=== PATIENT | male | born 1975 | race Caucasian/White ===

== ENCOUNTER 2020-10-18 23:05 | Emergency (ER) | payer BC, MEDICAID ==
[2020-10-19] MEDS ORDERED: Ketorolac 30 MG/ML SDV IM STA (00:18)
[2020-10-19] MEDS ORDERED: Diazepam 5 MG Tab PO ONE (00:19)
--- NOTE | 2020-10-19 00:23 | EDM.PDOC ---
ED HPI GENERAL MEDICAL PROBLEM - General Chief Complaint: Lower Extremity Injury/Pain Stated Complaint: PAIN ON RIGHT HIP Time Seen by Provider: 10/18/20 23:59 - History of Present Illness INITIAL COMMENTS - FREE TEXT/NARRATIVE: 45-year-old male with no other active medical problems who is presenting with right hip pain that is a burning stabbing pain focused in the right hip and radiating down the right anterior thigh as well as into the right calf associated with calf spasms. No fall no injury of any kind no midline back pain or back pain. He notes that over the last month he has had on and off trouble with right-sided sciatica pain more in the buttock that radiates down the back. He states that this is improved with time and with movement. However this pain over the last few days has become more severe it is improved with direct pressure of his thumb on the anterior hip it is also improved in the position. No fevers no chills no history of IV drug use. Pain is currently 7 out of 10 he has not tried regular NSAIDs he did take 3 sleeping pills tonight to try and get some sleep he did fall asleep but he woke up in worse pain. He is typically in worst pain in the morning. right hip Pain Score (Numeric/FACES): 9 - Related Data Allergies Allergy/AdvReac Type Severity Reaction Status Date / Time No Known Allergies Allergy Verified 10/18/20 23:42 Home Meds: Home Meds Ibuprofen 800 mg PO TIDMEALS 5 Days #15 tablet 10/19/20 [Rx] diazePAM [Valium] 5 mg PO TID PRN 3 Days #9 tablet 10/19/20 [Rx] Past Medical History HEENT History: Reports: None Cardiovascular History: Reports: None Respiratory History: Reports: None Gastrointestinal History: Reports: None Genitourinary History: Reports: None Musculoskeletal History: Reports: None Neurological History: Reports: None Psychiatric History: Reports: Anxiety Endocrine/Metabolic History: Reports: None Insulin Pump Model and Casino Cage Supervisor: None Hematologic History: Reports: None Immunologic History: Reports: None Oncologic (Cancer) History: Reports: None Dermatologic History: Reports: None - Infectious Disease History Infectious Disease History: Reports: None - Past Surgical History Head Surgeries/Procedures: Reports: None Social & Family History - Family History Family Medical History: No Pertinent Family History - Caffeine Use Caffeine Use: Reports: Coffee - Recreational Drug Use Recreational Drug Use: No Review of Systems - Review of Systems Review Of Systems: See Below Constitutional: Reports: No Symptoms Respiratory: Reports: No Symptoms Cardiovascular: Reports: No Symptoms GI/Abdominal: Reports: No Symptoms Musculoskeletal: Reports: Other (Per HPI) Neurological: Reports: No Symptoms ED EXAM, GENERAL - Physical Exam Exam: See Below Free Text/Narrative:: General Appearance: No acute distress, appears comfortable Skin: No rash HEENT: Normocephalic/atraumatic, sclera anicteric, mucous membranes moist Neck: Normal range of motion Back: No midline tenderness step-off or deformity Musculoskeletal: Right lower extremity neurovascularly intact his pain is improved with direct pressure in the crease of the right hip anteriorly intact strength in the right hip no significant pain with hip motion with the exception of flexion Neurologic: Awake, alert, no obvious deficits, moving all extremities Psychiatric: Appropriate, cooperative Course - Vital Signs Last Recorded V/S: Last Vital Signs Temp 97.3 F 10/18/20 23:42 Pulse 77 10/18/20 23:42 Resp 18 10/18/20 23:42 BP 122/56 L 10/18/20 23:42 Pulse Ox 98 10/18/20 23:42 - Orders/Labs/Meds Meds: Medications Discontinued Medications Generic Name Dose Route Start Last Admin Trade Name Freq PRN Reason Stop Dose Admin Diazepam 5 mg 10/19/20 00:19 10/19/20 00:27 Valium. PO 10/19/20 00:20 5 mg ONETIME ONE Administration Ketorolac Tromethamine 30 mg 10/19/20 00:18 10/19/20 00:27 Toradol IM 10/19/20 00:19 30 mg NOW STA Administration Departure - Departure Time of Disposition: 00:20 Disposition: Home, Self-Care 01 Condition: Good Clinical Impression: Radicular pain of right lower extremity - Discharge Information *PRESCRIPTION DRUG MONITORING PROGRAM REVIEWED*: Not Applicable *COPY OF PRESCRIPTION DRUG MONITORING REPORT IN PATIENT SHANA: Not Applicable Prescriptions: Ibuprofen 800 mg PO TIDMEALS 5 Days #15 tablet diazePAM [Valium] 5 mg PO TID PRN 3 Days #9 tablet PRN Reason: Muscle Spasm Instructions: Pinched Nerve Referrals: PCP,Not In Area [Primary Care Provider] - Forms: ED Department Discharge Additional Instructions: Your hip pain is most likely due to to irritation of a nerve in your right hip. I encourage you to take the ibuprofen as scheduled for the next 5 days. You can take the Valium in the evening to help with sleep but it is important that you not combine it with any other sedatives sleeping aids or alcohol. It is also very important that if your pain has not improved by next week that you follow- up either in the clinic or here in the emergency department for x-rays to make sure that there are no problems with your bones that may be contributing to this pain. [facility] - Primary Care [address] [place] [address] [address] The following information is given to patients seen in the emergency department who are being discharged to home. This information is to outline your options for follow-up care. We provide all patients seen in our emergency department with a follow-up referral. The need for follow-up, as well as the timing and circumstances, are variable depending upon the specifics of your emergency department visit. If you don't have a primary care physician on staff, we will provide you with a referral. We always advise you to contact your personal physician following an emergency department visit to inform them of the circumstance of the visit and for follow-up with them and/or the need for any referrals to a consulting specialist. The emergency department will also refer you to a specialist when appropriate. This referral assures that you have the opportunity for follow-up care with a specialist. All of these measure are taken in an effort to provide you with optimal care, which includes your follow-up. Under all circumstances we always encourage you to contact your private physician who remains a resource for coordinating your care. When calling for follow-up care, please make the office aware that this follow-up is from your recent emergency room visit. If for any reason you are refused follow-up, please contact the [facility] Emergency Department at and asked to speak to the emergency department charge nurse. Sepsis Event Note (ED) - Evaluation Sepsis Screening Result: No Definite Risk - Focused Exam Vital Signs: Vital Signs Temp Pulse Resp BP Pulse Ox 10/18/20 23:42 97.3 F 77 18 122/56 L 98 - Assessment/Plan Assessment:: 45-year-old male presenting with signs and symptoms most consistent with radicular pain to the right lower extremity. I would favor femoral nerve involvement there also appears to be some sciatic nerve involvement. His strength is good he has no midline symptoms he has nothing to suggest cord compression or cauda equina. Patient provided with Toradol and Valium for symptoms prescription for Valium and ibuprofen. Strict return precautions were discussed and stood in particular we discussed that if his symptoms do not improve by next week he needs x-rays to exclude bony lesions. He expressed understanding of this.
== END 2020-10-19 00:45 | disposition home or self-care (01) ==
LOC: MW.ED 23:05
DX: M54.10 Radiculopathy, site unspecified (principal)
CPT/HCPCS: 96372; 99283; A9270; J1885

== ENCOUNTER 2020-10-21 00:03 | Emergency (ER) | payer MEDICAID ==
[2020-10-21] MEDS ORDERED: Gabapentin 300 MG Cap PO ONE (00:28)
--- NOTE | 2020-10-21 00:59 | CR ---
INDICATION: right hip pain PELVIS AND RIGHT HIP Comparison: No previous studies are currently available for comparison. No fractures or destructive lesions of bone are identified. No hip dislocation is evident. No hip arthritic changes are demonstrated. Included soft tissues show no significant findings. IMPRESSION: No significant abnormality identified. PATRICK RODGERS MD [employer] [facility] Dictated by: Frederick Rodgers MD @ 10/21/2020 00:58:10 (Electronically Signed)
--- NOTE | 2020-10-21 01:13 | EDM.PDOC ---
ED HPI GENERAL MEDICAL PROBLEM - General Chief Complaint: Lower Extremity Injury/Pain Stated Complaint: NERVE PAIN RT HIP Time Seen by Provider: 10/21/20 00:12 - History of Present Illness INITIAL COMMENTS - FREE TEXT/NARRATIVE: CHIEF COMPLAINT(S): Right leg pain HISTORY OF PRESENT ILLNESS: This is a 45-year-old man with a past medical history of right radicular pain who was seen in our emergency department on 2020 he was instructed to return to the emergency department for imaging if he had continued pain who presents to the emergency department today with a chief complaint of right leg pain. The patient states that he picked up his prescription and tried the Valium and ibuprofen however he is only done it for 1 day. He states that the pain is the same pain as it was a couple days ago. He is concerned and came back for imaging. He denies any trouble walking, bowel incontinence, urinary retention, urinary incontinence, back pain, fevers, or chills. He denies any history of IV drug use. He states that in the past in [place] he was given gabapentin which did relieve the pain. He states that he lost his job and has been unable to follow-up with his primary care physician. He denies any other symptoms. REVIEW OF SYSTEMS: Constitutional: Denies fever, chills. Eyes: Denies eye pain Ears, Nose, Mouth, & Throat: Denies earache Cardiovascular: Denies chest pain Respiratory: Denies shortness of breath Gastrointestinal: Denies Nausea, vomiting, diarrhea, hematochezia,, bowel incontinence Genitourinary: Denies hematuria, urinary retention, urinary incontinence Skin:Denies a rash MSK: Positive for right hip and leg pain. Denies back pain Neurological: Denies blurred vision, numbness, tingling, weakness Psychiatric: Denies depression PAST MEDICAL HISTORY: As per history of present illness and as reviewed below otherwise noncontributory. SURGICAL HISTORY: As per history of present illness and as reviewed below otherwise noncontributory. SOCIAL HISTORY: As per history of present illness and as reviewed below otherwise noncontributory. FAMILY HISTORY: As per history of present illness and as reviewed below otherwise noncontributory. EXAMINATION OF ORGAN SYSTEMS/BODY AREAS: Constitutional: Blood pressure was 122/56, heart rate 77, respiratory rate 18 with an oxygen saturation of 98% on room air. Temperature 36.3 General: Overall well-appearing man who is in no acute distress Psychiatric: Appropriate mood and affect. Eyes: No scleral icterus or conjunctival erythema NT: Neck is supple, trachea midline Cardiovascular: Regular, rate, and rhythm. No gallops, murmurs, or rubs. Bilateral upper extremity pulses symmetric and intact. No peripheral edema. No JVD. Respiratory: Lungs clear to auscultation bilaterally. No wheezes, rales, or rhonchi. Gastrointestinal: Soft, non-tender, non-distended. Normoactive bowel sounds Genitourinary: No suprapubic tenderness Musculoskeletal: Normal range of motion. No cervical, thoracic, or lumbar midline spinal tenderness. No overlying rashes. There is tenderness to palpation along the right hip and right thigh. Negative straight leg test. Skin: No lesions or abrasions. Neurological: Alert, GCS 15 strength and sensation grossly intact. MEDICAL DECISION MAKING AND COURSE IN THE ED WITH INTERPRETATION/REVIEW OF DIAGNOSTIC STUDIES: This is a 45-year-old man with a past medical history of right hip and thigh pain with possible history of radicular pain who was seen in our emergency department was told to return to the emergency department for imaging if pain continued. The pain has continued and he comes in with continued right leg pain. Obtain hip with pelvis x-ray. I do suspect the possibility of radicular pain and given the patient has used gabapentin with success in the past we will provide the patient with gabapentin here in the emergency department. I did have a lengthy discussion with the patient regarding gabapentin usage. I discussed that at this time the emergency depart ment is not the primary location patient comes to for management of his gabapentin usage. I did discuss with him that this has significant risk of abuse. I discussed that I did provide him with a short supply of gabapentin however he needed to follow-up with his primary care physician in order to further manage this pain. He did express understanding. The radiological images were viewed by myself along with reading the report from the radiologist. Right hip x-ray with pelvis does not reveal any abnormality or evidence of arthritis. The patient was able to ambulate without any difficulty. I did discuss with him he stable for discharge. He is to follow-up with his primary care physician for continued pain management of his right hip. He was amenable to discharge at this time and had no further questions. DISPOSITION: The patient was discharged home in stable condition. The patient will follow up with primary care physician within 1 week CONDITION: Fair PROCEDURES: None FINAL IMPRESSION(S)/DIAGNOSES: 1. Acute right hip and thigh pain Adrien Perez M.D. R hip Pain Score (Numeric/FACES): 8 - Related Data Allergies Allergy/AdvReac Type Severity Reaction Status Date / Time No Known Allergies Allergy Verified 10/21/20 00:09 Home Meds: Home Meds Ibuprofen 800 mg PO TIDMEALS 5 Days #15 tablet 10/19/20 [Rx] diazePAM [Valium] 5 mg PO TID PRN 3 Days #9 tablet 10/19/20 [Rx] Gabapentin [Neurontin] 300 mg PO TID #21 cap 10/21/20 [Rx] Past Medical History HEENT History: Reports: None Cardiovascular History: Reports: None Respiratory History: Reports: None Gastrointestinal History: Reports: None Genitourinary History: Reports: None Musculoskeletal History: Reports: None Neurological History: Reports: None Other Neuro History: R facial nerve pain, sciatic pain Psychiatric History: Reports: Anxiety Endocrine/Metabolic History: Reports: None Insulin Pump Model and Datapower Developer: None Hematologic History: Reports: None Immunologic History: Reports: None Oncologic (Cancer) History: Reports: None Dermatologic History: Reports: None - Infectious Disease History Infectious Disease History: Reports: None - Past Surgical History Head Surgeries/Procedures: Reports: None Social & Family History - Family History Family Medical History: No Pertinent Family History - Caffeine Use Caffeine Use: Reports: Coffee - Recreational Drug Use Recreational Drug Use: No Review of Systems - Review of Systems Review Of Systems: See Below ED EXAM, GENERAL - Physical Exam Exam: See Below Course - Vital Signs Last Recorded V/S: Last Vital Signs Temp 36.8 C 10/21/20 00:09 Pulse 96 10/21/20 00:09 Resp 18 10/21/20 00:09 BP 132/95 H 10/21/20 00:09 Pulse Ox 98 10/21/20 00:09 - Orders/Labs/Meds Meds: Medications Discontinued Medications Generic Name Dose Route Start Last Admin Trade Name Freq PRN Reason Stop Dose Admin Gabapentin 300 mg 10/21/20 00:28 10/21/20 00:39 Neurontin PO 10/21/20 00:29 300 mg ONETIME ONE Administration Departure - Departure Time of Disposition: 01:08 Disposition: Home, Self-Care 01 Condition: Fair Clinical Impression: Radicular pain of right lower extremity - Discharge Information *PRESCRIPTION DRUG MONITORING PROGRAM REVIEWED*: No *COPY OF PRESCRIPTION DRUG MONITORING REPORT IN PATIENT SHANA: No Prescriptions: Gabapentin [Neurontin] 300 mg PO TID #21 cap Instructions: Radicular Pain Referrals: PCP,Not In Area [Primary Care Provider] - Forms: ED Department Discharge Additional Instructions: You your evaluated today on an emergent basis. At this time I do believe you are experiencing radicular pain. I did discuss with you that at this time I would provide you with gabapentin for 1 week. I discussed that this medication should be prescribed by her primary care physician and should be monitored closely as it is a drug of abuse. Please do not take the Valium that was prescribed to you with this medication. I do recommend that you take the Valium back to the pharmacy and dispose of it properly since it did not help you. If you have any new or worsening symptoms please return to the emergency department. You may follow-up with your primary care physician or orthopedic clinic for further evaluation and monitoring. [facility] - Primary Care [address] [place] [address] [address] [facility] Professional [facility] [address] [place] [address], [address] [place] [address] The patient is informed of any results of their evaluation and diagnostic workup and all questions are answered. They are given discharge instructions and return precautions. The patient is stable for discharge. The patient states they understand and agree with the plan and that they will return if their symptoms get worse or if they have any new concerns. The following information is given to patients seen in the emergency department who are being discharged to home. This information is to outline your options for follow-up care. We provide all patients seen in our emergency department with a follow-up referral. The need for follow-up, as well as the timing and circumstances, are variable depending upon the specifics of your emergency department visit. If you don't have a primary care physician on staff, we will provide you with a referral. We always advise you to contact your personal physician following an emergency department visit to inform them of the circumstance of the visit and for follow-up with them and/or the need for any referrals to a consulting specialist. The emergency department will also refer you to a specialist when appropriate. This referral assures that you have the opportunity for follow-up care with a specialist. All of these measure are taken in an effort to provide you with optimal care, which includes your follow-up. Under all circumstances we always encourage you to contact your private physician who remains a resource for coordinating your care. When calling for follow-up care, please make the office aware that this follow-up is from your recent emergency room visit. If for any reason you are refused follow-up, please contact the [facility] Emergency Department at and asked to speak to the emergency department charge nurse. Sepsis Event Note (ED) - Evaluation Sepsis Screening Result: No Definite Risk
== END 2020-10-21 01:26 | disposition home or self-care (01) ==
LOC: MW.ED 00:03
DX: M54.10 Radiculopathy, site unspecified (principal)
CPT/HCPCS: 73502; 99283; A9270

== ENCOUNTER 2021-02-27 17:40 | Emergency (ER) | payer MEDICAID ==
[2021-02-27] MEDS ORDERED: Sodium Chloride 0.9% 1,000 ML IV ONE ×3 (17:47→21:22)
--- NOTE | 2021-02-27 17:50 | EDM.PDOC ---
ED HPI GENERAL MEDICAL PROBLEM - General Source of Information: Reports: Patient History Limitations: Reports: No Limitations <Kalen Milan - Last Filed: 02/27/21 18:27> <Kole Pino - Last Filed: 02/27/21 21:42> - General Chief Complaint: Syncope Stated Complaint: SYNCOPY Time Seen by Provider: 02/27/21 17:47 - History of Present Illness INITIAL COMMENTS - FREE TEXT/NARRATIVE: Patient is a 45-year-old male who presents in police custody for syncope episode. Patient was getting booked when he became lightheaded and passed out. Patient self states that this happened still quite frequently he occasionally has panic attacks to where he passes out and he is aware that he wakes up he is pretty tired and dazed. Patient before the stent denies any chest pain headache vision changes. Patient currently says that he feels almost back to baseline but is low tire. Patient denies any nausea vomiting fever chills states been to lerating p.o. Per EMS patient blood pressure was in the low 60s over 40s and give him liter fluids now 80s over 60s. Patient this is occasionally happens his blood pressure when he had a syncope episode. Patient has been worked up for this in the past. (Kalen Milan) - Related Data Allergies Allergy/AdvReac Type Severity Reaction Status Date / Time No Known Allergies Allergy Verified 02/27/21 17:47 Home Meds: Home Meds Gabapentin [Neurontin] 300 mg PO TID #21 cap 10/21/20 [Rx] FLUoxetine [PROzac] 10 mg PO DAILY 02/27/21 [History] Past Medical History HEENT History: Reports: None Cardiovascular History: Reports: None Respiratory History: Reports: None Gastrointestinal History: Reports: None Genitourinary History: Reports: None Musculoskeletal History: Reports: None Neurological History: Reports: None Other Neuro History: R facial nerve pain, sciatic pain Psychiatric History: Reports: Anxiety Endocrine/Metabolic History: Reports: None Insulin Pump Model and Cake Froster: None Hematologic History: Reports: None Immunologic History: Reports: None Oncologic (Cancer) History: Reports: None Dermatologic History: Reports: None - Infectious Disease History Infectious Disease History: Reports: None - Past Surgical History Head Surgeries/Procedures: Reports: None <Kalen Milan - Last Filed: 02/27/21 18:27> Social & Family History - Family History Family Medical History: No Pertinent Family History - Caffeine Use Caffeine Use: Reports: Coffee <Daniel Milanjovan Mckeon - Last Filed: 02/27/21 18:27> ED ROS GENERAL - Review of Systems Review Of Systems: See Below Constitutional: Reports: No Symptoms HEENT: Reports: No Symptoms Respiratory: Reports: No Symptoms Cardiovascular: Reports: No Symptoms Endocrine: Reports: No Symptoms GI/Abdominal: Reports: No Symptoms : Reports: No Symptoms Musculoskeletal: Reports: No Symptoms Skin: Reports: No Symptoms Neurological: Reports: No Symptoms Psychiatric: Reports: No Symptoms Hematologic/Lymphatic: Reports: No Symptoms Immunologic: Reports: No Symptoms <BjornKalenjovan Mckeon - Last Filed: 02/27/21 18:27> - Physical Exam Exam: See Below Exam Limited By: No Limitations General Appearance: Alert, WD/WN, No Apparent Distress Eye Exam: Bilateral Eye: EOMI, PERRL Head Exam: Atraumatic, Normocephalic Respiratory/Chest: No Respiratory Distress, Lungs Clear, Normal Breath Sounds Cardiovascular: Normal Peripheral Pulses, Regular Rate, Rhythm GI/Abdominal: Normal Bowel Sounds, Soft, Non-Tender Neuro Exam (Abbreviated): Alert, Oriented, CN II-XII Intact, Normal Cognition, Normal Gait Back Exam: Normal Inspection Extremities: Normal Inspection, Normal Range of Motion <Kalen Milan - Last Filed: 02/27/21 18:27> #1 Interpretation EKG Date: 02/27/21 Time: 17:55 Rhythm: Other (bradycardia) Rate (Beats/Min): 56 ST-T: Normal <Kalen Mialn - Last Filed: 02/27/21 18:27> Course <Kole Pino - Last Filed: 02/27/21 21:42> - Vital Signs Text/Narrative:: 1916 hrs. I inherited this patient from my partner his shift is ended. Patient is oriented x4 but twitchy nervous and rolling around in the bed. He says he is not hallucinating. The patient says he took only gabapentin before arrival. His blood pressure was 66 on scene resuscitated only to 90 after liter fluids. He does think he might have been out in the heat got dehydrated. The patient was in custody of the Perinatal Director's office. They are going to release him with a warrant because it can take a while to decide if he needs to stay and in fact he might need observation overnight. We tried to place catheter and patient had a blood clot blocked presentation of the catheter. Continues to have bleeding from the urethra. He has 700+ milliliters of urine in the bladder on bladder scan. Suprapubic is contraindicated if he could see the urologist he agrees to go to [place] where they have a urologist. Patient screaming at the nurse threatening the nurse telling him that as long as the nurses in the room he is threatening violence. Patient agrees to have leather restraints rather than have somebody hold them down. Medical restraint ordered and he agreed to thea in the meantime Despite medical sedation the patient was thrashing about. He it was like he was going in and himself or pull himself out of bed. The patient has an obvious change in mental status from baseline previously described. Plan to do a work- up including CT of the head and if necessary LP to find ou We will do a catheterization after he is relaxed because we were unable to pass a May and I was unable to pass the 24 Sami coud. We may need to do a suprapubic tap for drug screen. Due to a high probability of clinically significant, life threatening deterioration, the patient required my highest level of preparedness to intervene emergently and I personally spent this critical care time directly and personally managing the patient. This critical care time included obtaining a history; examining the patient; pulse oximetry; ordering and review of studies; arranging urgent treatment with development of a management plan; evaluation of patient's response to treatment; frequent reassessment; and, discussions with other providers. This critical care time was performed to assess and manage the high probability of imminent, life-threatening deterioration that could result in multi-organ failure. It was exclusive of separately billable procedures and treating other patients and teaching time. [address] is unremarkable to me. The patient was discussed with the emergency physician Dr. Rodrigues at [facility]. This patient with delirium who is very difficult to sedate and has a lot of twitching movements probably has some sort of drug reaction. We do not have psychiatry here now did have intubated patient we do not have ventilator management. We also do not have urology to get a urine sample and relieve his urinary tract obstruction and evaluate his hematuria. Patient is transferred to [facility] for further evaluation and care. (Kole Pino) Last Recorded V/S: Last Vital Signs Temp 36.4 C 02/27/21 17:47 Pulse 62 02/27/21 21:30 Resp 28 H 02/27/21 21:30 BP 120/95 H 02/27/21 21:30 Pulse Ox 100 02/27/21 21:30 Orthostatic Blood Pressure [ 86/42 Standing] Orthostatic Blood Pressure [ 73/33 Sitting] Orthostatic Blood Pressure [ 77/47 Supine] - Orders/Labs/Meds Orders: Active Orders 24 hr Category Date Time Status EKG Documentation Completion [RC] STAT Care 02/27/21 17:48 Active Initiate/Renew Violent-Self Destructive Restraints >/= Care 02/27/21 20:15 Ordered 19yo Q4H Orthostatic Vital Signs [RC] ASDIRECTED Care 02/27/21 17:50 Active RT Ventilator ED, Adult [RC] ASDIRECTED Care 02/27/21 21:27 Active DRUG SCREEN, URINE [URCHEM] Stat Lab 02/27/21 17:47 Ordered Midazolam [Versed 5 MG/ML] 50 mg Med 02/27/21 21:30 Active Sodium Chloride 0.9% [Normal Saline] 40 ml IV TITRATE Sodium Chloride 0.9% [Normal Saline] 1,000 ml Med 02/27/21 21:22 Active IV .Bolus Medication Orders Sodium Chloride (Normal Saline) 1,000 mls @ 999 mls/hr IV .Bolus ONE Stop: 02/27/21 22:22 Midazolam HCl 50 mg/ Sodium (Chloride) 50 mls @ 0.5 mls/hr IV TITRATE RICK; Protocol Labs: Laboratory Tests 02/27/21 02/27/21 02/27/21 Range/Units 18:00 18:00 18:00 WBC 10.49 (4.0-11.0) K/uL RBC 4.31 L (4.50-5.90) M/uL Hgb 12.7 L (13.0-17.0) g/dL Hct 37.8 L (38.0-50.0) % MCV 87.7 (80.0-98.0) fL MCH 29.5 (27.0-32.0) pg MCHC 33.6 (31.0-37.0) g/dL RDW Std Deviation 42.8 (28.0-62.0) fl RDW Coeff of [place] 14 (11.0-15.0) % Plt Count 218 (150-400) K/uL MPV 8.90 (7.40-12.00) fL Neut % (Auto) 69.4 (48.0-80.0) % Lymph % (Auto) 21.8 (16.0-40.0) % [place] % (Auto) 7.4 (0.0-15.0) % Eos % (Auto) 1.0 (0.0-7.0) % Baso % (Auto) 0.4 (0.0-1.5) % Neut # (Auto) 7.3 H (1.4-5.7) K/uL Lymph # (Auto) 2.3 (0.6-2.4) K/uL [place] # (Auto) 0.8 (0.0-0.8) K/uL Eos # (Auto) 0.1 (0.0-0.7) K/uL Baso # (Auto) 0.0 (0.0-0.1) K/uL INR APTT (18.6-31.3) SEC Sodium 138 (136-148) mmol/L Potassium 3.7 (3.5-5.1) mmol/L Chloride 104 (98-107) mmol/L Carbon Dioxide 29.1 (21.0-32.0) mmol/L BUN 11 (7.0-18.0) mg/dL Creatinine 1.0 (0.8-1.3) mg/dL Est Cr Clr Drug Dosing 87.69 mL/min Estimated GFR (MDRD) > 60.0 ml/min Glucose 129 H (74-106) mg/dL Lactic Acid 1.6 (0.4-2.0) mmol/L Calcium 8.0 L (8.5-10.1) mg/dL Magnesium 2.1 (1.8-2.4) mg/dL Total Bilirubin 0.3 (0.2-1.0) mg/dL AST 20 (15-37) IU/L ALT 19 (14-63) IU/L Alkaline Phosphatase 60 (46-116) U/L Creatine Kinase 70 (26-308) U/L Troponin I < 0.050 (0.000-0.056) ng/mL Total Protein 6.4 (6.4-8.2) g/dL Albumin 3.2 L (3.4-5.0) g/dL Globulin 3.2 (2.6-4.0) g/dL Albumin/Globulin Ratio 1.0 (0.9-1.6) Lipase 462 H (73-393) U/L Salicylates (0-20) mg/dL Acetaminophen ug/mL Ethyl Alcohol <3 mg/dL SARS-CoV-2 RNA (TUNG) (NEGATIVE) 02/27/21 02/27/21 02/27/21 Range/Units 18:00 18:00 19:03 WBC (4.0-11.0) K/uL RBC (4.50-5.90) M/uL Hgb (13.0-17.0) g/dL Hct (38.0-50.0) % MCV (80.0-98.0) fL MCH (27.0-32.0) pg MCHC (31.0-37.0) g/dL RDW Std Deviation (28.0-62.0) fl RDW Coeff of [place] (11.0-15.0) % Plt Count (150-400) K/uL MPV (7.40-12.00) fL Neut % (Auto) (48.0-80.0) % Lymph % (Auto) (16.0-40.0) % [place] % (Auto) (0.0-15.0) % Eos % (Auto) (0.0-7.0) % Baso % (Auto) (0.0-1.5) % Neut # (Auto) (1.4-5.7) K/uL Lymph # (Auto) (0.6-2.4) K/uL [place] # (Auto) (0.0-0.8) K/uL Eos # (Auto) (0.0-0.7) K/uL Baso # (Auto) (0.0-0.1) K/uL INR 1.01 APTT 26.2 (18.6-31.3) SEC Sodium (136-148) mmol/L Potassium (3.5-5.1) mmol/L Chloride (98-107) mmol/L Carbon Dioxide (21.0-32.0) mmol/L BUN (7.0-18.0) mg/dL Creatinine (0.8-1.3) mg/dL Est Cr Clr Drug Dosing mL/min Estimated GFR (MDRD) ml/min Glucose (74-106) mg/dL Lactic Acid (0.4-2.0) mmol/L Calcium (8.5-10.1) mg/dL Magnesium (1.8-2.4) mg/dL Total Bilirubin (0.2-1.0) mg/dL AST (15-37) IU/L ALT (14-63) IU/L Alkaline Phosphatase (46-116) U/L Creatine Kinase (26-308) U/L Troponin I (0.000-0.056) ng/mL Total Protein (6.4-8.2) g/dL Albumin (3.4-5.0) g/dL Globulin (2.6-4.0) g/dL Albumin/Globulin Ratio (0.9-1.6) Lipase (73-393) U/L Salicylates 2.9 (0-20) mg/dL Acetaminophen <2.0 ug/mL Ethyl Alcohol mg/dL SARS-CoV-2 RNA (TUNG) NEGATIVE (NEGATIVE) Meds: Medications Generic Name Dose Route Start Last Admin Trade Name Frank PRN Reason Stop Dose Admin Sodium Chloride 1,000 mls @ 999 mls/hr 02/27/21 21:22 Normal Saline IV 02/27/21 22:22 .Bolus ONE Midazolam HCl 50 mg/ Sodium 50 mls @ 0.5 mls/hr 02/27/21 21:30 Chloride IV TITRATE RICK Protocol 0.5 MG/HR Discontinued Medications Generic Name Dose Route Start Last Admin Trade Name Freq PRN Reason Stop Dose Admin Diphenhydramine HCl 25 mg 02/27/21 19:15 02/27/21 19:20 Diphenhydramine 50 Mg/Ml Sdv IVPUSH 02/27/21 19:16 25 mg ONETIME ONE Administration Diphenhydramine HCl Confirm 02/27/21 19:17 02/27/21 19:22 Diphenhydramine 50 Mg/Ml Sdv Administered 02/27/21 19:18 Not Given Dose 50 mg .ROUTE .STK-MED ONE Diphenhydramine HCl 50 mg 02/27/21 20:04 Diphenhydramine 50 Mg/Ml Sdv IVPUSH 02/27/21 20:05 ONETIME ONE Diphenhydramine HCl Confirm 02/27/21 20:05 Diphenhydramine 50 Mg/Ml Sdv Administered 02/27/21 20:06 Dose 50 mg .ROUTE .STK-MED ONE Etomidate 20 mg 02/27/21 20:48 Etomidate 2 Mg/Ml 20 Ml Sdv IVPUSH 02/27/21 20:49 ONETIME ONE Haloperidol Lactate 5 mg 02/27/21 20:03 Haloperidol Lactate 5 Mg/Ml Sdv IM 02/27/21 20:04 ONETIME ONE Haloperidol Lactate Confirm 02/27/21 20:05 Haloperidol Lactate 5 Mg/Ml Sdv Administered 02/27/21 20:06 Dose 5 mg .ROUTE .STK-MED ONE Sodium Chloride 1,000 mls @ 999 mls/hr 02/27/21 17:47 02/27/21 17:53 Normal Saline IV 02/27/21 18:47 999 mls/hr .BOLUS ONE Administration Sodium Chloride 1,000 mls @ 999 mls/hr 02/27/21 18:54 02/27/21 19:20 Normal Saline IV 02/27/21 19:54 999 mls/hr .Bolus ONE Administration Ketamine HCl 100 mg 02/27/21 21:34 Ketamine 500 Mg/10 Ml Mdv IV 02/27/21 21:35 ONETIME ONE Lidocaine HCl Confirm 02/27/21 19:49 Lidocaine 2% Viscous Solution 15 Ml Cup Administered 02/27/21 19:50 Dose 15 ml .ROUTE .STK-MED ONE Lorazepam 1 mg 02/27/21 19:16 02/27/21 19:20 Lorazepam 2 Mg/Ml Sdv IVPUSH 02/27/21 19:17 1 mg ONETIME ONE Administration Lorazepam Confirm 02/27/21 19:18 02/27/21 19:22 Lorazepam 2 Mg/Ml Sdv Administered 02/27/21 19:19 Not Given Dose 2 mg .ROUTE .STK-MED ONE Lorazepam 0.5 mg 02/27/21 20:03 Lorazepam 2 Mg/Ml Sdv IVPUSH 02/27/21 20:04 ONETIME ONE Lorazepam 2 mg 02/27/21 20:12 Lorazepam 2 Mg/Ml Sdv IVPUSH 02/27/21 20:13 ONETIME ONE Lorazepam Confirm 02/27/21 20:18 Lorazepam 2 Mg/Ml Sdv Administered 02/27/21 20:19 Dose 2 mg .ROUTE .STK-MED ONE Midazolam HCl Confirm 02/27/21 20:41 Midazolam 1 Mg/Ml 2 Ml Sdv Administered 02/27/21 20:42 Dose 2 mg .ROUTE .STK-MED ONE Midazolam HCl 5 mg 02/27/21 20:48 Midazolam 5 Mg/Ml Sdv IVPUSH 02/27/21 20:49 ONETIME ONE Midazolam HCl 5 mg 02/27/21 21:24 Midazolam 5 Mg/Ml Sdv IVPUSH 02/27/21 21:25 ONETIME ONE Midazolam HCl Confirm 02/27/21 21:25 Midazolam 1 Mg/Ml 2 Ml Sdv Administered 02/27/21 21:26 Dose 6 mg .ROUTE .STK-MED ONE Rocuronium [place] 50 mg 02/27/21 20:48 Rocuronium 100 Mg/10 Ml Syringe IVPUSH 02/27/21 20:49 ONETIME ONE Departure <Kalen Milan - Last Filed: 02/27/21 18:27> - Departure Time of Disposition: 21:45 Condition: Fair <Kole Pino - Last Filed: 02/27/21 21:42> - Departure Disposition: DC/Tfer to [facility] 02 Clinical Impression: Delirium, Hematuria, Urinary retention - Discharge Information Referrals: PCP,None [Primary Care Provider] - Forms: ED Department Discharge Sepsis Event Note (ED) - Focused Exam Vital Signs: Vital Signs Temp Pulse Resp BP Pulse Ox 02/27/21 21:30 62 28 H 120/95 H 100 02/27/21 21:14 64 14 125/79 99 02/27/21 20:45 72 12 126/83 100 02/27/21 20:35 78 14 96/47 L 96 02/27/21 20:00 58 L 15 90/59 L 99 02/27/21 19:30 64 16 75/39 L 98 02/27/21 19:00 60 15 90/63 98 02/27/21 17:47 36.4 C 68 16 84/49 L 97 <Kalen Milan - Last Filed: 02/27/21 18:27> - My Orders Last 24 Hours: My Active Orders 02/27/21 20:15 Initiate/Renew Violent-Self Destructive Restraints >/=18yo Q4H 02/27/21 21:22 Sodium Chloride 0.9% [Normal Saline] 1,000 ml IV .Bolus 02/27/21 21:27 RT Ventilator ED, Adult [RC] ASDIRECTED 02/27/21 21:30 Midazolam [Versed 5 MG/ML] 50 mg Sodium Chloride 0.9% [Normal Saline] 40 ml IV TITRATE - Assessment/Plan Last 24 Hours: My Active Orders 02/27/21 20:15 Initiate/Renew Violent-Self Destructive Restraints >/=18yo Q4H 02/27/21 21:22 Sodium Chloride 0.9% [Normal Saline] 1,000 ml IV .Bolus 02/27/21 21:27 RT Ventilator ED, Adult [RC] ASDIRECTED 02/27/21 21:30 Midazolam [Versed 5 MG/ML] 50 mg Sodium Chloride 0.9% [Normal Saline] 40 ml IV TITRATE Plan: Patient is a 45-year-old male who presents today for a syncope episode. Patient is also hypotensive. Will obtain orthostatics give patient IV fluids EKG labs and reassess. (Kalen Milan)
[2021-02-27 18:31] LABS: BLOOD UREA NITROGEN,BUN 11 mg/dL (7.0-18.0); CARBON DIOXIDE,CO2 29.1 mmol/L (21.0-32.0); CHLORIDE,CL 104 mmol/L (98-107); GLUCOSE RANDOM 129 mg/dL (74-106); LIPASE 462 U/L (73-393); POTASSIUM,K 3.7 mmol/L (3.5-5.1); SODIUM,NA 138 mmol/L (136-148)
--- NOTE | 2021-02-27 18:51 | CR ---
INDICATION: Syncope TECHNIQUE: Chest radiograph 1 view COMPARISON: None FINDINGS: Mediastinum: The mediastinum is normal in appearance. The heart silhouette is normal in size and morphology. Lung: Both lungs are unremarkable in appearance. No sign of pleural effusion seen. No pneumothorax is identified. Bone and Soft tissue: Unremarkable for age. IMPRESSION: 1. No acute cardiopulmonary disease is seen. Dictated by: Thien Kumar MD @ 02/27/2021 18:50:42 (Electronically Signed)
[2021-02-27 18:54] LABS: ACETAMINOPHEN <2.0 ug/mL
[2021-02-27] MEDS ORDERED: diphenhydrAMINE 50 MG/ML SDV IVPUSH ONE ×2 (19:15→20:04)
[2021-02-27] MEDS ORDERED: LORazepam 2 MG/ML SDV IVPUSH ONE ×3 (19:16→20:12)
[2021-02-27] MEDS ORDERED: diphenhydrAMINE 50 MG/ML SDV ONE ×2 (19:17→20:05)
[2021-02-27] MEDS ORDERED: LORazepam 2 MG/ML SDV ONE ×2 (19:18→20:18)
[2021-02-27] MEDS ORDERED: Lidocaine 2% Viscous Solution 15 ML Cup ONE (19:49)
[2021-02-27] MEDS ORDERED: Haloperidol Lactate 5 MG/ML SDV IM ONE (20:03)
[2021-02-27] MEDS ORDERED: Haloperidol Lactate 5 MG/ML SDV ONE (20:05)
[2021-02-27] MEDS ORDERED: Midazolam 1 MG/ML 2 ML SDV ONE ×2 (20:41→21:25)
[2021-02-27] MEDS ORDERED: Rocuronium 100 MG/10 ML Syringe IVPUSH ONE (20:48)
[2021-02-27] MEDS ORDERED: Etomidate 2 MG/ML 20 ML SDV IVPUSH ONE (20:48)
[2021-02-27] MEDS ORDERED: Midazolam 5 MG/ML SDV IVPUSH ONE ×2 (20:48→21:24)
--- NOTE | 2021-02-27 20:57 | CR ---
INDICATION: Post intubation evaluation TECHNIQUE: Chest radiograph 1 view COMPARISON: 02/27/2021 FINDINGS: Mediastinum: The mediastinum is normal in appearance. The heart silhouette is normal in size and morphology. The endotracheal tube tip is positioned 4.5 cm from the german. Lung: Both lungs are unremarkable in appearance. No sign of pleural effusion seen. No pneumothorax is identified. Bone and Soft tissue: Unremarkable for age. IMPRESSION: 1. The endotracheal tube tip is positioned 4.5 cm from the german. Dictated by Thien Kumar MD @ 02/27/2021 8:55:48 PM Dictated by: Thien Kumar MD @ 02/27/2021 20:55:50 (Electronically Signed)
[2021-02-27] MEDS ORDERED: Midazolam 50 MG in Sodium Chloride 0.9% 40 ML IV SCH (21:30)
--- NOTE | 2021-02-27 21:30 | CT ---
INDICATION: Transient alteration of awareness TECHNIQUE: CT Head without i.v. contrast. Coronal and sagittal reformats were obtained. COMPARISON: 06/03/2008 FINDINGS: CSF space: The ventricles are normal for age. Brain: No evidence of mass, acute infarction or hemorrhage is seen. No mass-effect or midline shift is seen. The brain parenchyma is otherwise normal in appearance with preservation of the reid-white matter junction. Calvarium: The visualized paranasal sinuses are well aerated. The mastoid air cells are clear. The visualized orbits are grossly unremarkable. The calvarium is unremarkable in appearance with no fractures identified. IMPRESSION: 1. No evidence of acute infarction, intracranial hemorrhage, or mass-effect seen. Please note that all CT scans at this facility use dose modulation, iterative reconstruction, and/or weight-based dosing when appropriate to reduce radiation dose to as low as reasonably achievable. Dictated by: Thien Kumar MD @ 02/27/2021 21:28:12 (Electronically Signed)
[2021-02-27] MEDS ORDERED: Ketamine 500 mg/10 ML MDV IV ONE ×2 (21:34→21:56)
[2021-02-27] MEDS ORDERED: Rocuronium 100 MG/10 ML MDV IV ONE (21:42)
== END 2021-02-27 23:12 ==
LOC: MW.ED 17:40
DX: R41.0 Disorientation, unspecified (principal); R33.9 Retention of urine, unspecified; R31.9 Hematuria, unspecified; Z20.822 Contact with and (suspected) exposure to COVID-19
CPT/HCPCS: 31500; 36415; 70450; 71045; 80053; 80143; 80179; 80307; 82550; 83605; 83690; 83735; 84484; 85025; 85610; 85730; 87635; 93005; 96374; 96375; 96376; 99285; A9270; J1200; J1630; J2060; J2250; J3490; J7030; 93010; 99284; U0002